=== PATIENT | female | born 1960 | race Caucasian/White ===

== ENCOUNTER 2016-08-12 13:17 | Emergency (ER) | payer BC, OTHER ==
[~2016-08-12] VITALS: Ht 160 cm; Wt 62.8 kg
[2016-08-12 13:38] VITALS: BP 125/87; PULSE 88; RESP 16; TEMP 98.1; O2SAT 97
[2016-08-12] MEDS ORDERED: CEPH-460 PO (14:17)
--- NOTE | 2016-08-12 14:17 | PD ---
HPI Chief Complaint: Facial Pain or Swelling Time Seen by Provider: 14:03 Travel History International Travel<30 days: No Contact w/Intl Traveler<30days: No Traveled to known affect area: No History of Present Illness HPI This 56-year-old female is complaining of swelling on the right side of her face. She was okay yesterday. This morning she noted that the right side of her face was swollen and seemed a little bit numb. She is not aware of fever or chills. She thinks that her teeth are okay. She is on no medications. [facility] Past Medical History Medical History: Denies Significant Hx Diminished Hearing: No Tetanus Vaccination: Unknown Influenza Vaccination: No Past Surgical History Surgical History: No Previous Surgery Section: Yes Social History Alcohol Use: Yes Tobacco Use: Yes (1ppd) Substance Use: No Allergies-Medications (Allergen,Severity, Reaction): Coded Allergies: No Known Allergies (Unverified , 08/12/16) Reported Meds & Prescriptions Reported Meds & Active Scripts Active No Active Prescriptions or Reported Medications Review of Systems General / Constitutional: No: Fever, Chills Eyes: No: Diploplia HENT: No: Sore Throat, Rhinitis, Ear Discharge Cardiovascular: No: Chest Pain or Discomfort, Palpitations Respiratory: No: Cough, Shortness of Breath Gastrointestinal: No: Vomiting, Diarrhea Genitourinary: No: Urgency, Frequency Musculoskeletal: No: Myalgias, Arthralgias Skin: No Rash Endocrine: No: Heat Intolerance Hematologic/Lymphatic: No: Easy Bruising Physical Exam Narrative GENERAL: Well-developed female SKIN: Focused skin assessment warm/dry. HEAD: Atraumatic. Normocephalic. EYES: Pupils equal and round. No scleral icterus. No injection or drainage. ENT: No nasal bleeding or discharge. Mucous membranes pink and moist. Teeth are intact and nontender. There is swelling over the right parotid gland. It is diffusely so tender I do not feel a discrete mass. NECK: Trachea midline. No JVD. CARDIOVASCULAR: Regular rate and rhythm. No murmur appreciated. RESPIRATORY: No accessory muscle use. Clear to auscultation. Breath sounds equal bilaterally. GASTROINTESTINAL: Abdomen soft, non-tender, nondistended. Hepatic and splenic margins not palpable. MUSCULOSKELETAL: No obvious deformities. No clubbing. No cyanosis. No edema. NEUROLOGICAL: Awake and alert. No obvious cranial nerve deficits. Motor grossly within normal limits. Normal speech. PSYCHIATRIC: Appropriate mood and affect; insight and judgment normal. Data Data Last Documented VS Vital Signs Date Time Temp Pulse Resp B/P Pulse Ox O2 Delivery O2 Flow Rate FiO2 08/12/16 13:56 80 16 08/12/16 13:38 98.1 125/87 97 MDM Medical Decision Making Medical Screen Exam Complete: Yes Emergency Medical Condition: Yes Medical Record Reviewed: Yes Differential Diagnosis Differential includes sialoadenitis, sialolithiasis, Narrative Course Patient will be started on Keflex with recommendations from lemon drops to stimulate salivary flow. The importance of follow-up was stressed to the patient to make sure this is tumor, though the acute nature is more consistent with infection Diagnosis Primary Impression: Parotitis, acute Referrals: Uriel Nicholson MD Scripts Cephalexin (Keflex)500 Mg Itd559 Mg PO Q6H #40 CAP Ref 0 Prov:Haroldo Andrews MD 08/12/16 Disposition: 01 DISCHARGE HOME Condition: Stable Haroldo Andrews MD Aug 12, 2016 14:17
== END 2016-08-12 14:59 | disposition home or self-care (01) ==
LOC: PHEFT 13:17
DX: K11.21 Acute sialoadenitis (principal); F17.210 Nicotine dependence, cigarettes, uncomplicated
CPT/HCPCS: 99283

== ENCOUNTER 2017-06-13 04:16 | Emergency (ER) | payer OTHER ==
[~2017-06-13] VITALS: Ht 157.5 cm; Wt 61.0 kg
[~2017-06-13 04:16] MED LIST: CEPH-460 PO
[2017-06-13 04:21] VITALS: BP 180/79; PULSE 86; RESP 20; TEMP 98; O2SAT 95
[2017-06-13] MEDS ORDERED: PRIL20TA2 (04:33)
--- NOTE | 2017-06-13 05:28 | PD ---
HPI Chief Complaint: Respiratory Symptoms Time Seen by Provider: 05:19 Travel History International Travel<30 days: No Contact w/Intl Traveler<30days: No Traveled to known affect area: No History of Present Illness HPI The patient is a 56-year-old female that started wheezing for the past week. She has been a heavy smoker for 40 years, one pack a day. She has cut back recently to one half pack a day. She denies any fever. She was given by [facility] personnel albuterol nebulizer treatments at home and then was cleared to drive from her home here to the emergency department. She did improve with the wheezing with those nebulizer treatments. She does not have a primary care physician. She can't remember ever having a chest x-ray. PFSH Past Medical History Diminished Hearing: No GERD: Yes Tetanus Vaccination: Unknown Influenza Vaccination: No ?: Not Menopausal: Yes Past Surgical History Section: Yes Social History Alcohol Use: Yes (6pk/day) Tobacco Use: Yes (1ppd) Substance Use: No Allergies-Medications (Allergen,Severity, Reaction): Coded Allergies: No Known Allergies (Unverified Adverse Reaction, Unknown, 06/13/17) Reported Meds & Prescriptions Reported Meds & Active Scripts Active Proair Hfa 8.5 GM Inh (Albuterol Sulfate) 90 Mcg/Act Aer 2 Puff INH Q4-6H PRN 108 mcg/actuation Prednisone 20 Mg Tab 20 Mg PO BID 5 Days Reported Prilosec (Omeprazole Magnesium) 20 Mg Tab Review of Systems Except as stated in HPI: all other systems reviewed are Neg Physical Exam Narrative GENERAL: The patient is alert, oriented 3 in no respiratory distress. Her vital signs show blood pressure 180/79 but are otherwise normal. SKIN: Focused skin assessment warm/dry. HEAD: Atraumatic. Normocephalic. EYES: Pupils equal and round. No scleral icterus. No injection or drainage. ENT: No nasal bleeding or discharge. Mucous membranes pink and moist. NECK: Trachea midline. No JVD. CARDIOVASCULAR: Regular rate and rhythm. No murmur appreciated. RESPIRATORY: No accessory muscle use. A few widely scattered wheezes are heard with deep expiration only. Breath sounds equal bilaterally. GASTROINTESTINAL: Abdomen soft, non-tender, nondistended. Hepatic and splenic margins not palpable. MUSCULOSKELETAL: No obvious deformities. No clubbing. No cyanosis. No edema. NEUROLOGICAL: Awake and alert. No obvious cranial nerve deficits. Motor grossly within normal limits. Normal speech. PSYCHIATRIC: Appropriate mood and affect; insight and judgment normal. Data Data Last Documented VS Vital Signs Date Time Temp Pulse Resp B/P (MAP) Pulse Ox O2 Delivery O2 Flow Rate FiO2 06/13/17 06:57 101 18 173/74 (107) 95 Room Air 06/13/17 04:21 98.0 Orders Orders Complete Blood Count With Diff (06/13/17 05:28) Basic Metabolic Panel (Bmp) (06/13/17 05:28) Influenzae A/B Antigen (06/13/17 05:28) Chest, Pa & Lat (06/13/17 05:28) Methylprednisolone So Succ Inj (Solumedr (06/13/17 05:30) Albuterol-Ipratropium Neb (Duoneb Neb) (06/13/17 05:30) Labs Laboratory Tests Test 06/13/17 05:35 White Blood Count 9.5 TH/MM3 Red Blood Count 5.00 MIL/MM3 Hemoglobin 16.1 GM/DL Hematocrit 47.8 % Mean Corpuscular Volume 95.7 FL Mean Corpuscular Hemoglobin 32.2 PG Mean Corpuscular Hemoglobin Concent 33.6 % Red Cell Distribution Width 13.0 % Platelet Count 316 TH/MM3 Mean Platelet Volume 8.1 FL Neutrophils (%) (Auto) 65.9 % Lymphocytes (%) (Auto) 22.5 % Monocytes (%) (Auto) 8.6 % Eosinophils (%) (Auto) 1.2 % Basophils (%) (Auto) 1.8 % Neutrophils # (Auto) 6.3 TH/MM3 Lymphocytes # (Auto) 2.1 TH/MM3 Monocytes # (Auto) 0.8 TH/MM3 Eosinophils # (Auto) 0.1 TH/MM3 Basophils # (Auto) 0.2 TH/MM3 CBC Comment DIFF FINAL Differential Comment Blood Urea Nitrogen 6 MG/DL Creatinine 0.49 MG/DL Random Glucose 100 MG/DL Calcium Level 8.5 MG/DL Sodium Level 137 MEQ/L Potassium Level 3.7 MEQ/L Chloride Level 104 MEQ/L Carbon Dioxide Level 24.2 MEQ/L Anion Gap 9 MEQ/L Estimat Glomerular Filtration Rate 130 ML/MIN MDM Medical Decision Making Medical Screen Exam Complete: Yes Emergency Medical Condition: Yes Medical Record Reviewed: Yes Interpretation(s) The influenza A/B antigen is negative for flu a and flu B antigen. The CBC is normal except for slight elevation of the abdomen and hematocrit at 16.1 and 47.8. The basic metabolic profile is unremarkable. The chest x-ray shows a right lower lobe infiltrate and small right effusion consistent with pneumonia. Differential Diagnosis Pneumonia, bronchitis with bronchospasm, lung tumor, Narrative Course The patient is alert, active and in no respiratory distress. She does not want to be admitted to the hospital for this and wants to try treatment as an outpatient. It was stressed that she needs to follow-up with this to make sure this pneumonia resolves. It is possible that a tumor could be hidden in what looks like a pneumonia and this was explained to the patient. She needs to quit smoking completely. She is given Zithromax 500 mg daily for 5 days and Ceftin 500 mg twice a day for 10 days. If worse, she should return to emergency department. Diagnosis Primary Impression: Right lower lobe pneumonia Additional Instructions: As we discussed, you need to quit smoking. You did promise me that you would quit smoking at least for the time of the pneumonia. The Ceftin's twice daily for 10 days and the Zithromax is one tablet daily for 5 days. Med/Other Pt SpecificInfo: Prescription(s) given Scripts Azithromycin (Zithromax) 500 Mg Tab 500 MG PO DAILY for Infection for 5 Days, #5 TAB 0 Refills Prov: Zac Simental MD 06/13/17 Cefuroxime (Ceftin) 250 Mg Tab 500 MG PO BID for 10 Days, #40 TAB Prov: Zac Simental MD 06/13/17 Albuterol 8.5 GM Inh (Proair Hfa 8.5 GM Inh) 90 Mcg/Act Aer 2 PUFF INH Q4-6H Y for SHORTNESS OF BREATH, #1 INHALER 0 Refills 108 mcg/actuation Prov: Zac Simental MD 06/13/17 Prednisone (Prednisone) 20 Mg Tab 20 MG PO BID for 5 Days, #10 TAB 0 Refills Prov: Zac Simental MD 06/13/17 Disposition: 01 DISCHARGE HOME Condition: Stable Zac Simental MD Jun 13, 2017 05:28
[2017-06-13] MEDS ORDERED: methylPREDNISolone SOD SUCC 125 MG/2 ML VIAL IV PUSH ONE (05:30)
[2017-06-13] MEDS: RESP: ALBUTEROL 2.5 MG/IPRATROPIUM 0.5 MG NEB (SCH) INH (05:40)
[2017-06-13 05:50] LABS: AUTOMATED NEUTROPHIL # 6.3 TH/MM3 (1.8-7.7); BASOPHIL # 0.2 TH/MM3 (0-0.2); BASOPHIL % 1.8 % (0.0-2.0); EOSINOPHIL # 0.1 TH/MM3 (0-0.4); EOSINOPHIL % 1.2 % (0.0-4.0); HEMATOCRIT 47.8 % (35.0-46.0); HEMOGLOBIN 16.1 GM/DL (11.6-15.3); LYMPH % 22.5 % (9.0-44.0); LYMPHOCYTE # 2.1 TH/MM3 (1.0-4.8); MEAN CELL VOLUME 95.7 FL (80.0-100.0); MEAN CORPUSCULAR HEMOGLOBIN 32.2 PG (27.0-34.0); MEAN CORPUSCULAR HGB CONC 33.6 % (32.0-36.0); MEAN PLATELET VOLUME 8.1 FL (7.0-11.0); MONO % 8.6 % (0.0-8.0); MONOCYTE # 0.8 TH/MM3 (0-0.9); NEUT % 65.9 % (16.0-70.0); PLATELET COUNT 316 TH/MM3 (150-450); WHITE BLOOD COUNT 9.5 TH/MM3 (4.0-11.0)
[2017-06-13 05:52] VITALS: BP 146/71; PULSE 80; RESP 18; O2SAT 100
[2017-06-13 06:02] LABS: BICARBONATE 24.2 MEQ/L (21.0-32.0); CALCIUM 8.5 MG/DL (8.5-10.1)
[2017-06-13 06:06] LABS: CREATININE 0.49 MG/DL (0.50-1.00)
[2017-06-13] MEDS ORDERED: PRED20 PO (06:10)
[2017-06-13] MEDS ORDERED: ALBUAER3 INH (06:10)
--- NOTE | 2017-06-13 06:34 | RADRPT ---
EXAM DATE/TIME: 06/13/2017 05:44 [facility] COMPARISON: No previous studies available for comparison. INDICATIONS : Cough. Congestion. MEDICAL HISTORY : None. SURGICAL HISTORY : None. ENCOUNTER: Initial ACUITY: 4 - 6 days PAIN SCORE: 6/10 LOCATION: Bilateral chest FINDINGS: PA and lateral views of the chest were obtained and demonstrate patchy infiltrate in the right lower lobe with small right pleural effusion. The left lung is clear. The heart size is within normal limit s. The bony thorax is intact. Patient is status post right mastectomy. CONCLUSION: 1. Right lower lobe infiltrate and small right effusion of concern for pneumonia. 2. Status post right mastectomy. Royce Damian MD on June 13, 2017 at 6:32 Board Certified Radiologist. This report was verified electronically.
[2017-06-13 06:57] VITALS: BP 173/74; PULSE 101; RESP 18; O2SAT 95
[2017-06-13] MEDS ORDERED: ZITH500T PO (07:08)
[2017-06-13] MEDS ORDERED: CEFU1TAB18 PO (07:08)
[2017-06-13] MEDS ORDERED: AZITHROMYCIN 250 MG TAB PO ONE (07:15)
[2017-06-13] MEDS ORDERED: cefTRIAXone INJ 1,000 MG in SODIUM CHLORIDE 0.9% INJ 100 ML IV ONE (07:15)
[2017-06-13 08:30] VITALS: BP 134/80
== END 2017-06-13 08:31 | disposition home or self-care (01) ==
LOC: PHED 04:16
DX: K21.9 Gastro-esophageal reflux disease without esophagitis (principal); F17.200 Nicotine dependence, unspecified, uncomplicated; J18.9 Pneumonia, unspecified organism
CPT/HCPCS: 71046; 80048; 85025; 87804; 94640; 94664; 96365; 96375; 99284; J0696; J2930

== ENCOUNTER 2017-07-01 13:02 | Inpatient (IN) | payer OTHER ==
[~2017-07-01] VITALS: Ht 165.1 cm; Wt 60.9 kg
[~2017-07-01 13:02] MED LIST changes: +ALBUAER3 INH; +CEFU1TAB18 PO; -CEPH-460 PO; +PRED20 PO; +PRIL20TA2; +ZITH500T PO
[2017-07-01 13:07] VITALS: BP 179/84; PULSE 102; RESP 18; TEMP 97.7; O2SAT 95
--- NOTE | 2017-07-01 13:22 | PD ---
HPI Chief Complaint: Respiratory Symptoms Time Seen by Provider: 13:12 Travel History International Travel<30 days: No Contact w/Intl Traveler<30days: No Traveled to known affect area: No History of Present Illness HPI 56yo F with no significant PMH presents to the ED with c/o sob for 4 days. Pt is a heavy cig smoker but said she was never diagnosed with COPD. Denies any fever, chest pain, cough, n/v, abdominal pain, focal weakness or numbness. Pt used her albuterol pump and it did help but sob comes back. Pt was seen at [place] on 06/13/17 and diagnosed with right lower lobe pneumonia and discharge with ceftin, azithromycin, prednisone and ventolin. Said her symptoms improved and she was feeling good until 4 days ago. PFSH Past Medical History Diminished Hearing: No GERD: Yes ?: Not Menopausal: Yes Past Surgical History Section: Yes Social History Alcohol Use: Yes (6pk/day) Tobacco Use: Yes (1ppd) Substance Use: No Allergies-Medications (Allergen,Severity, Reaction): Coded Allergies: No Known Allergies (Unverified Adverse Reaction, Unknown, 07/01/17) Reported Meds & Prescriptions Reported Meds & Active Scripts Active Proair Hfa 8.5 GM Inh (Albuterol Sulfate) 90 Mcg/Act Aer 2 Puff INH Q4-6H PRN 108 mcg/actuation Reported Prilosec (Omeprazole Magnesium) 20 Mg Tab Review of Systems Except as stated in HPI: all other systems reviewed are Neg Physical Exam Narrative GENERAL: 56yo F in mild distress. SKIN: Focused skin assessment warm/dry. HEAD: Atraumatic. Normocephalic. EYES: Pupils equal and round. No scleral icterus. No injection or drainage. ENT: No nasal bleeding or discharge. Mucous membranes pink and moist. NECK: Trachea midline. No JVD. CARDIOVASCULAR: Regular rate and rhythm. No murmur appreciated. RESPIRATORY: Expiratory wheezing bilaterally. Decreased breath sounds right lower lobe. GASTROINTESTINAL: Abdomen soft, non-tender, nondistended. MUSCULOSKELETAL: No obvious deformities. No clubbing. No cyanosis. No edema. No calf tenderness. NEUROLOGICAL: Awake and alert. No obvious cranial nerve deficits. Motor grossly within normal limits. Normal speech. PSYCHIATRIC: Appropriate mood and affect; insight and judgment normal. Data Data Last Documented VS Vital Signs Date Time Temp Pulse Resp B/P (MAP) Pulse Ox O2 Delivery O2 Flow Rate FiO2 07/01/17 14:04 95 Room Air 07/01/17 13:07 97.7 102 18 179/84 (115) Orders Orders Complete Blood Count With Diff (07/01/17 13:17) Basic Metabolic Panel (Bmp) (07/01/17 13:17) Magnesium (Mg) (07/01/17 13:17) Troponin I (07/01/17 13:17) Influenzae A/B Antigen (07/01/17 13:17) Electrocardiogram (07/01/17 13:17) Chest, Single Ap (07/01/17 13:17) Methylprednisolone So Succ Inj (Solumedr (07/01/17 13:30) Albuterol-Ipratropium Neb (Duoneb Neb) (07/01/17 13:30) Prothrombin Time / Inr (Pt) (07/01/17 14:12) Act Partial Throm Time (Ptt) (07/01/17 14:12) Type And Screen (07/01/17 14:12) Blood Culture (07/01/17 14:18) Lactic Acid Sepsis Protocol (07/01/17 14:18) Ceftriaxone Inj (Rocephin Inj) (07/01/17 14:30) Azithromycin Inj (Zithromax Inj) (07/01/17 14:30) Admit Order (Ed Use Only) (07/01/17 15:10) Labs Laboratory Tests Test 07/01/17 13:30 07/01/17 14:20 07/01/17 14:25 White Blood Count 9.7 TH/MM3 Red Blood Count 4.65 MIL/MM3 Hemoglobin 15.1 GM/DL Hematocrit 44.2 % Mean Corpuscular Volume 95.1 FL Mean Corpuscular Hemoglobin 32.5 PG Mean Corpuscular Hemoglobin Concent 34.1 % Red Cell Distribution Width 13.1 % Platelet Count 309 TH/MM3 Mean Platelet Volume 7.9 FL Neutrophils (%) (Auto) 60.6 % Lymphocytes (%) (Auto) 22.8 % Monocytes (%) (Auto) 11.3 % Eosinophils (%) (Auto) 1.2 % Basophils (%) (Auto) 4.1 % Neutrophils # (Auto) 5.9 TH/MM3 Lymphocytes # (Auto) 2.2 TH/MM3 Monocytes # (Auto) 1.1 TH/MM3 Eosinophils # (Auto) 0.1 TH/MM3 Basophils # (Auto) 0.4 TH/MM3 CBC Comment DIFF FINAL Differential Comment Blood Urea Nitrogen 9 MG/DL Creatinine 0.53 MG/DL Random Glucose 156 MG/DL Calcium Level 8.6 MG/DL Magnesium Level 1.7 MG/DL Sodium Level 136 MEQ/L Potassium Level 3.8 MEQ/L Chloride Level 104 MEQ/L Carbon Dioxide Level 23.8 MEQ/L Anion Gap 8 MEQ/L Estimat Glomerular Filtration Rate 119 ML/MIN Troponin I LESS THAN 0.02 NG/ML Prothrombin Time 9.9 SEC Prothromb Time International Ratio 1.0 RATIO Activated Partial Thromboplast Time 23.3 SEC Lactic Acid Level 1.2 mmol/L [facility] Medical Decision Making Medical Screen Exam Complete: Yes Emergency Medical Condition: Yes Interpretation(s) EKG: NSR 91bpm. Normal axis. No ST segment elevation or depression. Differential Diagnosis COPD exacerbation vs. URI vs. bronchitis vs. pneumonia Narrative Course 56yo F who is a heavy cig smoker here with sob for 4 days. Pt is wheezing on exam but speaking in complete sentences. Will give duonebs, methylprednisolone , and obtain EKG, CXR and labs. Labs reviewed, no leukocytosis. H/H normal. Troponin negative. CXR showed consolidative changes right lower lobe with moderate pleural effusion. CXR looks worst than prior CXR. Pt reevaluated at bedside and feels better than when she came in but still not at baseline. Will add blood cultures, lactic acid and empirically cover with ceftriaxone and azithromycin. Will need to admit pt for thoracentesis and work up of etiology of pleural effusion. Feel that pt is sob because of the pleural effusion and COPD. Discussed with Dr. Plasencia and accepted to his service. Diagnosis Primary Impression: Pleural effusion on right Admitting Information Admitting Physician Requests: Admit Ryanne Chavira Jul 01, 2017 13:22
[2017-07-01] MEDS ORDERED: methylPREDNISolone SOD SUCC 125 MG/2 ML VIAL IV PUSH ONE (13:30)
[2017-07-01 13:45] LABS: AUTOMATED NEUTROPHIL # 5.9 TH/MM3 (1.8-7.7); BASOPHIL # 0.4 TH/MM3 (0-0.2); BASOPHIL % 4.1 % (0.0-2.0); EOSINOPHIL # 0.1 TH/MM3 (0-0.4); EOSINOPHIL % 1.2 % (0.0-4.0); HEMATOCRIT 44.2 % (35.0-46.0); HEMOGLOBIN 15.1 GM/DL (11.6-15.3); LYMPH % 22.8 % (9.0-44.0); LYMPHOCYTE # 2.2 TH/MM3 (1.0-4.8); MEAN CELL VOLUME 95.1 FL (80.0-100.0); MEAN CORPUSCULAR HEMOGLOBIN 32.5 PG (27.0-34.0); MEAN CORPUSCULAR HGB CONC 34.1 % (32.0-36.0); MEAN PLATELET VOLUME 7.9 FL (7.0-11.0); MONO % 11.3 % (0.0-8.0); MONOCYTE # 1.1 TH/MM3 (0-0.9); NEUT % 60.6 % (16.0-70.0); PLATELET COUNT 309 TH/MM3 (150-450); RED BLOOD COUNT 4.65 MIL/MM3 (4.00-5.30); RED CELL DISTRIBUTION WIDTH 13.1 % (11.6-17.2); WHITE BLOOD COUNT 9.7 TH/MM3 (4.0-11.0)
[2017-07-01] MEDS: RESP: ALBUTEROL 2.5 MG/IPRATROPIUM 0.5 MG NEB (SCH) INH (13:49)
[2017-07-01 13:52] LABS: CHLORIDE 104 MEQ/L (98-107); SODIUM (NA) 136 MEQ/L (136-145)
[2017-07-01 13:54] LABS: CALCIUM 8.6 MG/DL (8.5-10.1)
--- NOTE | 2017-07-01 13:54 | RADRPT ---
EXAM DATE/TIME: 07/01/2017 13:38 [facility] COMPARISON: No previous studies available for comparison. INDICATIONS : Short of breath MEDICAL HISTORY : Smoker SURGICAL HISTORY : section. ENCOUNTER: Initial ACUITY: 4 - 6 days PAIN SCORE: 0/10 LOCATION: chest FINDINGS: Consolidative changes and moderate right pleural effusion. Left lung is clear. The heart and pulmona ry vascularity are normal. The portion of the bony skeleton visualized is unremarkable. CONCLUSION: Consolidative changes right lower lobe with moderate right pleural effusion.. Jamaal Enrique MD FACR on July 01, 2017 at 13:51 Board Certified Radiologist. This report was verified electronically.
[2017-07-01 13:55] LABS: BICARBONATE 23.8 MEQ/L (21.0-32.0); BLOOD UREA NITROGEN 9 MG/DL (7-18); GLUCOSE,RANDOM 156 MG/DL (74-106); MAGNESIUM 1.7 MG/DL (1.5-2.5)
[2017-07-01 13:58] LABS: CREATININE 0.53 MG/DL (0.50-1.00); GLOMERULAR FILTRATION RATE 119 ML/MIN (>89)
[2017-07-01 14:03] LABS: TROPONIN I LESS THAN 0.02 NG/ML (0.02-0.05)
[2017-07-01] MEDS ORDERED: cefTRIAXone INJ 1,000 MG in SODIUM CHLORIDE 0.9% INJ 100 ML IV ONE (14:30)
[2017-07-01] MEDS ORDERED: AZITHROMYCIN INJ 500 MG in SODIUM CHLOR 0.9% 250 ML INJ 250 ML IV ONE (14:30)
[2017-07-01 14:59] LABS: PROTHROMBIN TIME - PATIENT 9.9 SEC (9.8-11.6)
[2017-07-01] MEDS ORDERED: ONDANSETRON HCL 4 MG/2 ML VIAL IVP PRN (15:15)
[2017-07-01] MEDS ORDERED: NALOXONE HCL 0.4 MG/ML AMP IV PUSH PRN (15:15)
[2017-07-01] MEDS ORDERED: MAGNESIUM HYDROXIDE SUSP 30 ML CUP PO PRN (15:15)
[2017-07-01] MEDS ORDERED: SODIUM CHLORIDE 0.9% FLUSH 10 ML FLUSH IV FLUSH PRN (15:15)
[2017-07-01] MEDS ORDERED: ACETAMINOPHEN/HYDROcodone 325 MG/5 MG TAB PO PRN (15:15)
[2017-07-01] MEDS ORDERED: ACETAMINOPHEN/HYDROcodone 325 MG/10 MG TAB PO PRN (15:15)
[2017-07-01 15:51] VITALS: BP 153/65
--- NOTE | 2017-07-01 16:35 | HHI.HP ---
HPI Service [facility] Hospitalists Primary Care Physician No Primary Care Physician Admission Diagnosis Right pleural effusion Diagnoses: (1) Pleural effusion on right Chief Complaint: Shortness of breath Travel History International Travel<30 Days: No Contact w/Intl Traveler <30 Da: No Traveled to Known Affected Are: No History of Present Illness This is a 56-year-old female patient with no significant medical history who presented to the ED with complaints of shortness of breath for 4 days. Patient states that she presented to [facility] on June 13 with complaint of shortness of breath and diagnosed with right lower lobe pneumonia patient was discharged with Ceftin, azithromycin and prednisone. Patient states that her symptoms did improve but she still started to feel symptoms return roughly 4 days ago. Patient denies any recent fever, chills, headache, abdominal pain, nausea, vomiting or diarrhea. She does admit to a nonproductive cough, has been using her Ventolin inhaler intermittently. Patient does not see a PCP. Patient is a smoker, smokes 1 pack per day cigarettes. Denies any history of pulmonary disease. Review of Systems Constitutional: DENIES: Fever, Chills Eyes: DENIES: Blurred vision, Diplopia Respiratory: COMPLAINS OF: Cough, Shortness of breath, DENIES: Sputum production Cardiovascular: DENIES: Chest pain, Palpitations Gastrointestinal: DENIES: Abdominal pain, Black stools, Bloody stools, Constipation, Diarrhea, Nausea, Vomiting Neurologic: DENIES: Abnormal gait Psychiatric: DENIES: Anxiety Except as stated in HPI: all other systems reviewed are Neg Past Family Social History Past Medical History GERD Tobacco abuse Past Surgical History Reported Medications Active Proair Hfa 8.5 GM Inh (Albuterol Sulfate) 90 Mcg/Act Aer 2 Puff INH Q4-6H PRN 108 mcg/actuation Reported Prilosec (Omeprazole Magnesium) 20 Mg Tab Allergies: Coded Allergies: No Known Allergies (Unverified Adverse Reaction, Unknown, 07/01/17) Active Ordered Medications Current Medications Medications (Trade) Dose Ordered Sig/Sin Route Start Time Stop Time Status Last Admin (NS Flush) 2 ml UNSCH PRN IV FLUSH 07/01/17 15:15 (NS Flush) 2 ml BID IV FLUSH 07/01/17 21:00 (Zofran Inj) 4 mg Q6H PRN IVP 07/01/17 15:15 ([place] 5-325 Mg) 1 tab Q4H PRN PO 07/01/17 15:15 ([place] 10-325 Mg) 1 tab Q4H PRN PO 07/01/17 15:15 (Narcan Inj) 0.4 mg UNSCH PRN IV PUSH 07/01/17 15:15 (Milk Of Sangita Liq) 30 ml Q12H PRN PO 07/01/17 15:15 Family History Paternal medical history significant for cardiovascular disease. Mother had unspecified cancer. Social History Does admit to smoking 1 pack per day. Does drink 2-3 beers per day. Denies any illicit drug use. Physical Exam Vital Signs Vital Signs Date Time Temp Pulse Resp B/P (MAP) Pulse Ox O2 Delivery O2 Flow Rate FiO2 07/01/17 15:51 108 18 153/65 (94) 93 07/01/17 14:04 95 Room Air 07/01/17 13:07 97.7 102 18 179/84 (115) 95 Physical Exam GENERAL: Well-developed, well-nourished patient in NAD. SKIN: Warm and dry. No rash. HEAD: Normocephalic. Atraumatic. EYES: Pupils equal and round. No scleral icterus. No injection or drainage. ENT: No nasal bleeding or discharge. Mucous membranes pink and moist. NECK: Supple. Trachea midline. CARDIOVASCULAR: Regular rate and rhythm. S1, S2 noted. No murmur appreciated. RESPIRATORY: No accessory muscle use. Clear to auscultation. Breath sounds equal bilaterally. GASTROINTESTINAL: Abdomen soft, non-tender, nondistended. Normoactive bowel sounds x4. MUSCULOSKELETAL: No obvious deformities. Extremities without clubbing, cyanosis , or edema. NEUROLOGICAL: Awake and alert. No obvious cranial nerve deficits. Motor grossly within normal limits. 5/5 muscle strength in bilateral upper and lower extremities. Normal speech. PSYCHIATRIC: Appropriate mood and affect; insight and judgment normal. Laboratory Laboratory Tests Test 07/01/17 13:30 07/01/17 14:20 07/01/17 14:25 White Blood Count 9.7 Red Blood Count 4.65 Hemoglobin 15.1 Hematocrit 44.2 Mean Corpuscular Volume 95.1 Mean Corpuscular Hemoglobin 32.5 Mean Corpuscular Hemoglobin Concent 34.1 Red Cell Distribution Width 13.1 Platelet Count 309 Mean Platelet Volume 7.9 Neutrophils (%) (Auto) 60.6 Lymphocytes (%) (Auto) 22.8 Monocytes (%) (Auto) 11.3 Eosinophils (%) (Auto) 1.2 Basophils (%) (Auto) 4.1 Neutrophils # (Auto) 5.9 Lymphocytes # (Auto) 2.2 Monocytes # (Auto) 1.1 Eosinophils # (Auto) 0.1 Basophils # (Auto) 0.4 CBC Comment DIFF FINAL Differential Comment Blood Urea Nitrogen 9 Creatinine 0.53 Random Glucose 156 Calcium Level 8.6 Magnesium Level 1.7 Sodium Level 136 Potassium Level 3.8 Chloride Level 104 Carbon Dioxide Level 23.8 Anion Gap 8 Estimat Glomerular Filtration Rate 119 Troponin I LESS THAN 0.02 Prothrombin Time 9.9 Prothromb Time International Ratio 1.0 Activated Partial Thromboplast Time 23.3 Lactic Acid Level 1.2 Date/Time Source Procedure Growth Status 07/01/17 14:28 Blood Peripheral Aerobic Blood Culture Pending Received 07/01/17 14:28 Blood Peripheral Anaerobic Blood Culture Pending Received 07/01/17 13:28 Nasal Aspirate Influenza Types A,B Antigen (RADHA) - Final NEGATIVE FOR FLU A AND B ANTIGEN.... Complete Result Diagram: 07/01/17 1330 07/01/17 1330 Imaging Last Impressions Chest X-Ray 07/01/17 1317 Signed Impressions: Service Date/Time: Saturday, July 01, 2017 13:38 - CONCLUSION: Consolidative changes right lower lobe with moderate right pleural effusion.. Jamaal Enrique MD FACR Septic Shock Reassessment Septic shock perfusion: reassessment completed Caprini VTE Risk Assessment Caprini VTE Risk Assessment: No/Low Risk (score <= 1) Caprini Risk Assessment Model Point Value = 1 Point Value = 2 Point Value = 3 Point Value = 5 Age 41-60 Minor surgery BMI > 25 kg/m2 Swollen legs Varicose veins or History of unexplained or recurrent spontaneous Oral contraceptives or hormone replacement Sepsis (< 1 month) Serious lung disease, including pneumonia (< 1 month) Abnormal pulmonary function Acute myocardial infarction Congestive heart failure (< 1 month) History of inflammatory bowel disease Medical patient at bed rest Age 61-74 Arthroscopic surgery Major open surgery (> 45 min) Laparoscopic surgery (> 45 min) Malignancy Confined to bed (> 72 hours) Immobilizing plaster cast Central venous access Age >= 75 History of VTE Family history of VTE Factor V Leiden Prothrombin [id number] Lupus anticoagulant Anticardiolipin antibodies Elevated serum homocysteine Heparin-induced thrombocytopenia Other congenital or acquired thrombophilia Stroke (< 1 month) Elective arthroplasty Hip, pelvis, or leg fracture Acute spinal cord injury (< 1 month) Prophylaxis Regimen Total Risk Factor Score Risk Level Prophylaxis Regimen 0-1 Low Early ambulation 2 Moderate Order ONE of the following: *Sequential Compression Device (SCD) *Heparin 5000 units SQ BID 3-4 Higher Order ONE of the following medications: *Heparin 5000 units SQ TID *Enoxaparin/Lovenox 40 mg SQ daily (WT < 150 kg, CrCl > 30 mL/min) *Enoxaparin/Lovenox 30 mg SQ daily (WT < 150 kg, CrCl > 10-29 mL/min) *Enoxaparin/Lovenox 30 mg SQ BID (WT < 150 kg, CrCl > 30 mL/min) AND/OR *Sequential Compression Device (SCD) 5 or more Highest Order ONE of the following medications: *Heparin 5000 units SQ TID (Preferred with Epidurals) *Enoxaparin/Lovenox 40 mg SQ daily (WT < 150 kg, CrCl > 30 mL/min) *Enoxaparin/Lovenox 30 mg SQ daily (WT < 150 kg, CrCl > 10-29 mL/min) *Enoxaparin/Lovenox 30 mg SQ BID (WT < 150 kg, CrCl > 30 mL/min) AND *Sequential Compression Device (SCD) Assessment and Plan Assessment and Plan This is a 56-year-old female patient with no significant medical history who presented to the ED with complaints of shortness of breath for 4 days. Right lower lobe pneumonia failed outpatient antibiotic therapy Moderate right pleural effusion Patient had presented to the ED on June 13 and was given Ceftin, azithromycin and prednisone. Patient's symptoms have not improved. Chest x-ray reviewed showing consolidative changes right lower lobe with moderate right pleural effusion. Patient is afebrile. Blood cultures are pending. Influenza negative. No leukocytosis. Follow CBC. Lactic acid 1.2. Ultrasound-guided thoracentesis ordered. Performed and tolerated well, 1200 ml obtained. Follow cultures. Received azithromycin and ceftriaxone in ED. Continue. We will also continue IV steroids. Duo nebs scheduled and as needed. Supplemental O2 as needed. Control pain, [place] available as needed for pain scale. Supportive care. DVT prophylaxis: SCDs. Physician Certification 2 Midnight Certification Type: Admission for Inpatient Services Order for Inpatient Services The services are ordered in accordance with Medicare regulations or non- Medicare payer requirements, as applicable. In the case of services not specified as inpatient-only, they are appropriately provided as inpatient services in accordance with the 2-midnight benchmark. Estimated LOS (days): 3 3 days is the estimated time the patient will need to remain in the hospital, assuming treatment plan goals are met and no additional complications. Post-Hospital Plan: Not yet determined Rosalba Minor Jul 01, 2017 16:35
[2017-07-01] MEDS ORDERED: ALBUTEROL SULFATE 90 MCG/ACT HFA 8 GM INHALER INH PRN (16:45)
--- NOTE | 2017-07-01 17:29 | RADRPT ---
EXAM DATE/TIME: 07/01/2017 17:12 [facility] COMPARISON: CHEST PA & LAT, June 13, 2017, 5:44. CHEST SINGLE AP, July 01, 2017, 13:38. INDICATIONS : Post right thoracentesis. MEDICAL HISTORY : Smoker SURGICAL HISTORY : section. ENCOUNTER: Subsequent ACUITY: 4 - 6 days PAIN SCORE: 0/10 LOCATION: Right chest FINDINGS: A single portable frontal view the chest shows significant reduction in the right pleural effusion. A tiny amount of fluid remains in the lateral costophrenic sulcus. Right basilar atelectasis. There is a nodular density seen projecting over the midlung laterally on the right. This measures 1.4 x 0.9 c m. This was not evident on the prior study as this area was obscured by atelectasis. Left lung is vira ar without effusion. Heart is normal in size. CONCLUSION: 1. No pneumothorax following thoracentesis. 2. 14 mm nodule within the right lower lobe previously obscured. Consider CT of the thorax to further characterize. Alexis Macias Jr., MD on July 01, 2017 at 17:25 Board Certified Radiologist. This report was verified electronically.
--- NOTE | 2017-07-01 17:29 | RADRPT ---
EXAM DATE/TIME: 07/01/2017 16:19 [facility] COMPARISON: No previous studies available for comparison. INDICATIONS : Right pleural effusion. Vancomycin within 2 hrs of procedure, Ancef (or alternative) within 1 hr of procedure start. MEDICAL HISTORY : Gastroesophageal reflux disease. Pneumonia. Alcohol use. Tobacco use. SURGICAL HISTORY : section. ENCOUNTER: Initial ACUITY: 1 month PAIN SCORE: 2/10 LOCATION: Right chest FLUID: Total volume of 1300 cc of clear, yellow fluid was removed. Fluid was sent to lab for ordered studies. TECHNIQUE: 1. Ultrasound guidance for thoracentesis. 2. Thoracentesis. The risks, benefits, and alternatives to ultrasound guided thoracentesis were explained to the patien t in lay simple terms, including the risk of bleeding and infection. Written and verbal informed con sent was obtained. Appropriate area for thoracentesis was marked under ultrasound guidance with the patient in the uprig ht position. Overlying skin was prepped and draped in the usual sterile fashion and with local anest hetic, a dermatotomy was made with an 11 blade scalpel. A 6 Chinese thoracentesis catheter was placed in the pleural space and fluid was removed. Catheter was then removed and a sterile dressing applie d. There were no immediate complications. The patient tolerated the procedure well and the left the ultrasound suite in stable condition. Chest radiograph is to be obtained. CONCLUSION: Uncomplicated ultrasound guided right thoracentesis. The fluid was sent to the laboratory. Alexis Macias Jr., MD on July 01, 2017 at 17:27 Board Certified Radiologist. This report was verified electronically.
[2017-07-01 17:30] VITALS: BP 139/87; PULSE 112; RESP 14; TEMP 96.4; O2SAT 95
[2017-07-01] MEDS ORDERED: RESP: ALBUTEROL 2.5 MG/IPRATROPIUM 0.5 MG NEB (PRN) NEB (17:45)
[2017-07-01] MEDS: methylPREDNISolone SOD SUCC 40 MG/1 ML VIAL IV PUSH SCH (18:14)
[2017-07-01 19:02] LABS: PLEURAL FLUID BASO 1 %; PLEURAL FLUID EOS 1 %; PLEURAL FLUID HISTIOCYTES 6 %; PLEURAL FLUID LYMPHS 69 %; PLEURAL FLUID MESOTHELIAL 2 %; PLEURAL FLUID MONOS 19 %; PLEURAL FLUID POLYS (SEGS) 2 %
[2017-07-01 19:38] LABS: PLEURAL FLUID RBC 656 /MM3 (0-0); PLEURAL FLUID WBC 433 /MM3 (0-10)
[2017-07-01 20:00] VITALS: BP 143/67; PULSE 106; RESP 20; TEMP 97.8; O2SAT 94
[2017-07-01] MEDS: RESP: ALBUTEROL 2.5 MG/IPRATROPIUM 0.5 MG NEB (SCH) NEB (20:49)
[2017-07-01] MEDS: SODIUM CHLORIDE 0.9% FLUSH 10 ML FLUSH IV FLUSH SCH (21:53)
[2017-07-02] VITALS (10 sets, daily range): BP systolic 126–155; BP diastolic 71–96; PULSE 82–114; RESP 18–20; TEMP 97.5–98.2; O2SAT 93–97
[2017-07-02] MEDS: methylPREDNISolone SOD SUCC 40 MG/1 ML VIAL IV PUSH SCH ×4 (00:49→16:45)
[2017-07-02] MEDS: RESP: ALBUTEROL 2.5 MG/IPRATROPIUM 0.5 MG NEB (SCH) NEB ×3 (08:14→20:16)
[2017-07-02] MEDS: SODIUM CHLORIDE 0.9% FLUSH 10 ML FLUSH IV FLUSH SCH ×2 (08:31→21:00)
[2017-07-02 09:41] LABS: AUTOMATED NEUTROPHIL # 15.5 TH/MM3 (1.8-7.7); BASOPHIL # 0.2 TH/MM3 (0-0.2); BASOPHIL % 1.4 % (0.0-2.0); HEMOGLOBIN 15.2 GM/DL (11.6-15.3); LYMPH % 5.6 % (9.0-44.0); MEAN CELL VOLUME 96.6 FL (80.0-100.0); MEAN CORPUSCULAR HEMOGLOBIN 31.9 PG (27.0-34.0); MEAN PLATELET VOLUME 8.7 FL (7.0-11.0); MONO % 2.1 % (0.0-8.0); MONOCYTE # 0.4 TH/MM3 (0-0.9); NEUT % 90.9 % (16.0-70.0); PLATELET COUNT 301 TH/MM3 (150-450); RED BLOOD COUNT 4.76 MIL/MM3 (4.00-5.30); RED CELL DISTRIBUTION WIDTH 12.5 % (11.6-17.2); WHITE BLOOD COUNT 17.1 TH/MM3 (4.0-11.0)
[2017-07-02 10:00] LABS: CHLORIDE 103 MEQ/L (98-107); SODIUM (NA) 140 MEQ/L (136-145)
[2017-07-02 10:23] LABS: ALBUMIN 3.5 GM/DL (3.4-5.0); ALKALINE PHOSPHATASE 75 U/L (45-117); ALT (GPT) 19 U/L (10-53); AST (GOT) 22 U/L (15-37); BICARBONATE 27.9 MEQ/L (21.0-32.0); BLOOD UREA NITROGEN 5 MG/DL (7-18); CALCIUM 9.5 MG/DL (8.5-10.1); CREATININE 0.54 MG/DL (0.50-1.00); GLOMERULAR FILTRATION RATE 116 ML/MIN (>89); GLUCOSE,RANDOM 192 MG/DL (74-106); TOTAL BILIRUBIN ADULT 0.6 MG/DL (0.2-1.0); TOTAL PROTEIN 7.8 GM/DL (6.4-8.2)
--- NOTE | 2017-07-02 10:42 | HHI.PR ---
Subjective Remarks Follow-up pneumonia. Patient seen and examined, lying in bed comfortably. No acute events overnight. Awaiting CT scan. Updated patient about finding on chest x-ray, inflammatory versus infection versus rule out cancer. All questions answered. Vital signs stable. Objective Vitals Vital Signs Date Time Temp Pulse Resp B/P (MAP) Pulse Ox O2 Delivery O2 Flow Rate FiO2 07/02/17 08:15 94 07/02/17 08:00 97.5 82 18 144/85 (104) 95 07/02/17 04:00 98.2 91 20 134/96 (109) 93 07/02/17 00:00 98.1 101 20 142/72 (95) 93 07/01/17 20:00 97.8 106 20 143/67 (92) 94 07/01/17 17:30 96.4 112 14 139/87 (104) 95 07/01/17 15:51 108 18 153/65 (94) 93 07/01/17 14:04 95 Room Air 07/01/17 13:07 97.7 102 18 179/84 (115) 95 I/O 07/01/17 07/01/17 07/01/17 07/02/17 07/02/17 07/02/17 07:00 15:00 23:00 07:00 15:00 23:00 Intake Total 350 ml 420 ml Balance 350 ml 420 ml Intake Oral 420 ml IV Total 350 ml # Voids 1 2 # Bowel Movements 0 Result Diagram: 07/02/17 0853 07/02/17 0853 Imaging Last Impressions Chest X-Ray 07/01/17 1317 Signed Impressions: Service Date/Time: Saturday, July 01, 2017 13:38 - CONCLUSION: Consolidative changes right lower lobe with moderate right pleural effusion.. Jamaal Enrique MD FACR Thoracentesis Ultrasound 07/01/17 0000 Signed Impressions: Service Date/Time: Saturday, July 01, 2017 16:19 - CONCLUSION: Uncomplicated ultrasound guided right thoracentesis. The fluid was sent to the laboratory. Alexis Macias Jr., MD Objective Remarks GENERAL: Well-developed, well-nourished patient in NAD. SKIN: Warm and dry. No rash. HEAD: Normocephalic. Atraumatic. EYES: Pupils equal and round. No scleral icterus. No injection or drainage. ENT: No nasal bleeding or discharge. Mucous membranes pink and moist. NECK: Supple. Trachea midline. CARDIOVASCULAR: Regular rate and rhythm. S1, S2 noted. No murmur appreciated. RESPIRATORY: No accessory muscle use. Right posterior lobe with rhonchi throughout. Breath sounds equal bilaterally. GASTROINTESTINAL: Abdomen soft, non-tender, nondistended. Normoactive bowel sounds x4. MUSCULOSKELETAL: No obvious deformities. Extremities without clubbing, cyanosis , or edema. NEUROLOGICAL: Awake and alert. No obvious cranial nerve deficits. Motor grossly within normal limits. 5/5 muscle strength in bilateral upper and lower extremities. Normal speech. PSYCHIATRIC: Appropriate mood and affect; insight and judgment normal. A/P Problem List: (1) Pleural effusion on right ICD Code: J90 - Pleural effusion, not elsewhere classified Status: Acute Assessment and Plan This is a 56-year-old female patient with no significant medical history who presented to the ED with complaints of shortness of breath for 4 days. Right lower lobe pneumonia failed outpatient antibiotic therapy Moderate right pleural effusion Right lower lobe nodule rule out cancerous process versus infection versus inflammatory Patient had presented to the ED on June 13 and was given Ceftin, azithromycin and prednisone. Patient's symptoms have not improved. Chest x-ray reviewed showing consolidative changes right lower lobe with moderate right pleural effusion. Patient is afebrile. Blood cultures are pending. Influenza negative. No leukocytosis. Follow CBC. Lactic acid 1.2. Ultrasound-guided thoracentesis ordered. Performed and tolerated well, 1200 ml obtained. Follow cultures. CXR post thoracentesis showing 14 mm nodule within the right lower lobe previously obscured. Consult placed to pulmonology, appreciate further recommendations and input. Received azithromycin and ceftriaxone in ED. Continue. We will also continue IV steroids. Duo nebs scheduled and as needed. Supplemental O2 as needed. Control pain, [place] available as needed for pain scale. Supportive care. DVT prophylaxis: SCDs. Rosalba Minor Jul 02, 2017 10:42
[2017-07-02] MEDS: cefTRIAXone INJ 1,000 MG in SODIUM CHLORIDE 0.9% INJ 100 ML IV SCH (14:36)
[2017-07-02] MEDS: AZITHROMYCIN INJ 500 MG in SODIUM CHLOR 0.9% 250 ML INJ 250 ML IV SCH (16:44)
[2017-07-02] MEDS ORDERED: IOHEXOL 350 MG/ML 10 ML VIAL (for RAD DIAG) IVCONTRAST ONE (18:22)
--- NOTE | 2017-07-02 18:22 | RADRPT ---
EXAM DATE/TIME: 07/02/2017 18:02 [facility] COMPARISON: No previous studies available for comparison. INDICATIONS : Shortness of breath. IV CONTRAST: 100 cc Omnipaque 350 (iohexol) IV RADIATION DOSE: 6.42 CTDIvol (mGy) MEDICAL HISTORY : None SURGICAL HISTORY : section. ENCOUNTER: Initial ACUITY: 1 week PAIN SCALE: 0/10 LOCATION: Bilateral chest TECHNIQUE: Volumetric scanning of the chest was performed. Using automated exposure control and adjustment of t he mA and/or kV according to patient size, radiation dose was kept as low as reasonably achievable to obtain optimal diagnostic quality images. DICOM format image data is available electronically for review and comparison. Follow-up recommendations for detected pulmonary nodules are based at a minimum on nodule size and pa tient risk factors according to Fleischner Society Guidelines. FINDINGS: There are multiple pleural based masses in the right hemithorax measuring up to about 1.2 cm in thick ness. There are also pleural masses along the fissures bilaterally, right greater than left. Smaller pleural-based masses are present on the left. Several subcentimeter lung nodules also noted. Findings are most characteristic of pleural spread of tumor. There is right hilar adenopathy. There is a mass in the right breast measuring up to 5.4 x 3.4 cm suspicious for a breast carcinoma. T here is right axillary adenopathy measuring up to 1.8 cm in diameter. CONCLUSION: 1. Right-sided breast mass measuring up to 5.4 cm in diameter with likely metastatic disease to the p leura bilaterally and also to the right hilum and probable early metastatic disease other mediastinal lymph nodes as well. There is also right axillary serenity metastatic disease. Small residual right eff usion. No acute findings in the upper abdomen. Charan Gomez MD on July 02, 2017 at 18:16 Board Certified Radiologist. This report was verified electronically.
--- NOTE | 2017-07-02 20:40 | MB ---
cc: Karishma Schwarz MD, [place] W MD DATE OF CONSULT: 07/02/2017 REASON FOR CONSULTATION: Pleural effusion, pneumonia. HISTORY OF PRESENT ILLNESS: Mrs. Simpson is a 56-year-old female who visited the ER earlier this week with evidence of right lower lobe pneumonia and given Ceftin, Zithromax and prednisone and discharged home. She did improve for a few days, however, again symptoms recurred with increasing shortness of breath. She returns to the emergency room for same. She denies history of fever, chills, hemoptysis. A chest x-ray, however, revealed a right pleural effusion for which a thoracentesis was undertaken. The pleural fluid Gram stain was without organisms. I am asked to see the patient at this time for same. PAST MEDICAL HISTORY: Denies history of diabetes, hypertension or heart disease. She is a smoker. History of acid reflux. FAMILY HISTORY: Noncontributory. MEDICATIONS: At home albuterol p.r.n. ALLERGIES: NONE KNOWN TO MEDICATIONS. REVIEW OF SYSTEMS: A 12-point review of systems as per HPI and past history otherwise negative. PHYSICAL EXAMINATION: GENERAL: The patient is alert. VITAL SIGNS: Temperature 98, pulse 90, respiration 20, blood pressure 150/70, oxygen saturation 95% room air. HEENT: Unremarkable. Eyes without icterus. NECK: Without adenopathy or thyroid enlargement. CHEST: Decreased breath sounds, right base. CARDIAC: PMI fifth left space mid clavicular line, S1, S2 audible. No murmur, no rub. ABDOMEN: Lax, bowel sounds audible. EXTREMITIES: No cyanosis, clubbing or edema.. LABORATORY DATA: White count 9.7, hemoglobin 15, hematocrit 44, platelets 309,000. Sodium 136, potassium 3.8, BUN 9, creatinine 0.5. IMAGING STUDIES Chest x-ray: Right pleural effusion post thoracentesis. A 14 mm nodule, right lower lobe is noted. IMPRESSION: 1. Pneumonia. 2. Parapneumonic effusion. 3. Right lower lobe nodule. 4. Tobacco abuse. PLAN: The patient to be maintained on bronchodilator therapy as well as antibiotic therapy for underlying infection. Pleural fluid studies should be followed and reviewed. Meanwhile, a CT scan of the chest given the nodularity in the right lower lobe would be appropriate to assess the possibility for underlying malignancy, infection or other findings that may be present not seen on the routine chest x-ray. I do thank you for asking me to partake in Mrs. Simpson's care. Karishma Schwarz MD [email or web address] , 01:01 PM , 08:27 PM
--- NOTE | 2017-07-02 23:36 | EKG ---
Date Performed: 07/01/2017 Time Performed: 13:26:12 PTAGE: 56 years EKG: Sinus rhythm NORMAL ECG NO PREVIOUS TRACING DOCTOR: Edin Mendez Interpretating Date/Time 07/02/2017 23:34:38
[2017-07-03] VITALS (9 sets, daily range): BP systolic 133–155; BP diastolic 63–78; PULSE 74–102; RESP 18–20; TEMP 97.1–98.2; O2SAT 93–97
[2017-07-03] MEDS: methylPREDNISolone SOD SUCC 40 MG/1 ML VIAL IV PUSH SCH ×4 (06:00→22:15)
[2017-07-03] MEDS: RESP: ALBUTEROL 2.5 MG/IPRATROPIUM 0.5 MG NEB (SCH) NEB ×3 (08:06→20:16)
[2017-07-03] MEDS: SODIUM CHLORIDE 0.9% FLUSH 10 ML FLUSH IV FLUSH SCH ×2 (08:26→22:14)
--- NOTE | 2017-07-03 12:42 | HHI.PR ---
Subjective Remarks alert no sob sitting in chair Objective Vital Signs Date Time Temp Pulse Resp B/P (MAP) Pulse Ox O2 Delivery O2 Flow Rate FiO2 07/03/17 08:16 97 07/03/17 08:04 74 07/03/17 08:00 97.7 102 18 135/69 (91) 94 07/03/17 04:00 97.3 89 20 140/77 (98) 93 07/03/17 00:00 97.4 99 20 133/66 (88) 94 07/02/17 20:16 96 21 07/02/17 20:00 97.7 102 20 155/79 (104) 94 07/02/17 16:00 98.0 106 18 150/71 (97) 96 07/02/17 15:01 114 I/O 07/02/17 07/02/17 07/02/17 07/03/17 07/03/17 07/03/17 07:00 15:00 23:00 07:00 15:00 23:00 Intake Total 420 ml 350 ml 1440 ml Output Total 6 ml Balance 420 ml 344 ml 1440 ml Intake Oral 420 ml 1440 ml IV Total 350 ml Output Urine Total 6 ml # Voids 2 6 Result Diagram: 07/02/17 0853 07/02/17 0853 Objective Remarks GENERAL: SKIN: Warm and dry. HEAD: Atraumatic. Normocephalic. EYES: Pupils equal and round. No scleral icterus. No injection or drainage. ENT: No nasal bleeding or discharge. Mucous membranes pink and moist. NECK: Trachea midline. No JVD. CARDIOVASCULAR: Regular rate and rhythm. RESPIRATORY: No accessory muscle use. decrease breath sounds at basis to auscultation. Breath sounds equal bilaterally. GASTROINTESTINAL: Abdomen soft, non-tender, nondistended. Hepatic and splenic margins not palpable. MUSCULOSKELETAL: Extremities without clubbing, cyanosis, or edema. No obvious deformities. NEUROLOGICAL: Awake and alert. No obvious cranial nerve deficits. Motor grossly within normal limits. Five out of 5 muscle strength in the arms and legs. Normal speech. PSYCHIATRIC: Appropriate mood and affect; insight and judgment normal. Assessment and Plan Assessment and Plan ass: pleural effusion [place] mass, with probable mets causing the effusions PLAN CONSULT ONCOLOGY CHECK CYTOLOGY Karishma Schwarz MD Jul 03, 2017 12:42
--- NOTE | 2017-07-03 12:44 | HHI.PR ---
Subjective Remarks Follow-up pneumonia and lung nodule. Patient seen and examined, lying in bed comfortably. CT results reviewed overnight. There is a 5.4 cm mass in right breast. As well as suspected metastatic disease to the lung and lymph nodes. Patient and seen at bedside, and reviewed report. All questions answered. Patient is somewhat emotional. Consult placed to oncologist, spoke to Dr. Angulo who will be in later today to develop a treatment plan. Objective Vitals Vital Signs Date Time Temp Pulse Resp B/P (MAP) Pulse Ox O2 Delivery O2 Flow Rate FiO2 07/03/17 08:16 97 07/03/17 08:04 74 07/03/17 08:00 97.7 102 18 135/69 (91) 94 07/03/17 04:00 97.3 89 20 140/77 (98) 93 07/03/17 00:00 97.4 99 20 133/66 (88) 94 07/02/17 20:16 96 21 07/02/17 20:00 97.7 102 20 155/79 (104) 94 07/02/17 16:00 98.0 106 18 150/71 (97) 96 07/02/17 15:01 114 I/O 07/02/17 07/02/17 07/02/17 07/03/17 07/03/17 07/03/17 07:00 15:00 23:00 07:00 15:00 23:00 Intake Total 420 ml 350 ml 1440 ml Output Total 6 ml Balance 420 ml 344 ml 1440 ml Intake Oral 420 ml 1440 ml IV Total 350 ml Output Urine Total 6 ml # Voids 2 6 Result Diagram: 07/02/17 0853 07/02/17 0853 Imaging Last Impressions Chest CT 07/02/17 0000 Signed Impressions: Service Date/Time: Sunday, July 02, 2017 18:02 - CONCLUSION: 1. Right- sided breast mass measuring up to 5.4 cm in diameter with likely metastatic disease to the pleura bilaterally and also to the right hilum and probable early metastatic disease other mediastinal lymph nodes as well. There is also right axillary serenity metastatic disease. Small residual right effusion. No acute findings in the upper abdomen. Charan Gomez MD Chest X-Ray 07/01/17 1317 Signed Impressions: Service Date/Time: Saturday, July 01, 2017 13:38 - CONCLUSION: Consolidative changes right lower lobe with moderate right pleural effusion.. Jamaal Enrique MD FACR Thoracentesis Ultrasound 07/01/17 0000 Signed Impressions: Service Date/Time: Saturday, July 01, 2017 16:19 - CONCLUSION: Uncomplicated ultrasound guided right thoracentesis. The fluid was sent to the laboratory. Alexis Macias Jr., MD Objective Remarks GENERAL: Well-developed, well-nourished patient in NAD. SKIN: Warm and dry. No rash. Right breast nodule palpated HEENT: Normocephalic. Atraumatic. Pupils equal and round. No scleral icterus. No injection or drainage. No nasal bleeding or discharge. Mucous membranes pink and moist. NECK: Supple. Trachea midline. CARDIOVASCULAR: Regular rate and rhythm. S1, S2 noted. No murmur appreciated. RESPIRATORY: No accessory muscle use. Right posterior lobe with rhonchi throughout. Breath sounds equal bilaterally. GASTROINTESTINAL: Abdomen soft, non-tender, nondistended. Normoactive bowel sounds x4. MUSCULOSKELETAL: No obvious deformities. Extremities without clubbing, cyanosis , or edema. NEUROLOGICAL: Awake and alert. No obvious cranial nerve deficits. Motor grossly within normal limits. 5/5 muscle strength in bilateral upper and lower extremities. Normal speech. PSYCHIATRIC: Appropriate mood and affect; insight and judgment normal. A/P Problem List: (1) Pleural effusion on right ICD Code: J90 - Pleural effusion, not elsewhere classified Status: Acute Assessment and Plan This is a 56-year-old female patient with no significant medical history who presented to the ED with complaints of shortness of breath for 4 days. Right lower lobe pneumonia failed outpatient antibiotic therapy Moderate right pleural effusion Right lower lobe nodule/right-sided breast mass suspect secondary to cancerous process Patient had presented to the ED on June 13 and was given Ceftin, azithromycin and prednisone. Patient's symptoms have not improved. Chest x-ray reviewed showing consolidative changes right lower lobe with moderate right pleural effusion. Patient is afebrile. Blood cultures no growth to date, continue to follow. Influenza negative. Follow CBC. Lactic acid 1.2. Ultrasound-guided thoracentesis ordered. Performed and tolerated well, 1200 ml obtained. Follow cultures. CXR post thoracentesis showing 14 mm nodule within the right lower lobe previously obscured. Consult placed to pulmonology, appreciate further recommendations and input. Chest CT reviewed showing right-sided breast mass measuring up to 5.4 cm in diameter with likely metastatic disease to the pleura bilaterally and also the right hilum and probable early metastatic disease other mediastinal lymph nodes as well. Consult placed to oncologist, appreciate further input recommendations. Consult also placed to general surgery for possible biopsy of right breast mass. Received azithromycin and ceftriaxone in ED. Continue. We will also continue IV steroids. Duo nebs scheduled and as needed. Supplemental O2 as needed. Control pain, [place] available as needed for pain scale. Supportive care. DVT prophylaxis: SCDs. Rosalba Minor Jul 03, 2017 12:44
[2017-07-03] MEDS: cefTRIAXone INJ 1,000 MG in SODIUM CHLORIDE 0.9% INJ 100 ML IV SCH (13:03)
[2017-07-03 13:35] LABS: AUTOMATED NEUTROPHIL # 19.5 TH/MM3 (1.8-7.7); BASOPHIL # 0.4 TH/MM3 (0-0.2); BASOPHIL % 1.7 % (0.0-2.0); EOSINOPHIL % 0.1 % (0.0-4.0); HEMATOCRIT 43.4 % (35.0-46.0); HEMOGLOBIN 14.7 GM/DL (11.6-15.3); LYMPH % 5.3 % (9.0-44.0); LYMPHOCYTE # 1.2 TH/MM3 (1.0-4.8); MEAN CELL VOLUME 94.8 FL (80.0-100.0); MEAN CORPUSCULAR HGB CONC 33.8 % (32.0-36.0); MEAN PLATELET VOLUME 8.4 FL (7.0-11.0); MONOCYTE # 0.7 TH/MM3 (0-0.9); NEUT % 89.9 % (16.0-70.0); PLATELET COUNT 301 TH/MM3 (150-450); RED BLOOD COUNT 4.58 MIL/MM3 (4.00-5.30); WHITE BLOOD COUNT 21.8 TH/MM3 (4.0-11.0)
[2017-07-03] MEDS: AZITHROMYCIN INJ 500 MG in SODIUM CHLOR 0.9% 250 ML INJ 250 ML IV SCH (16:44)
[2017-07-04] VITALS: BP 131/65; PULSE 92; RESP 18; TEMP 97.4; O2SAT 95
[2017-07-04 08:00] VITALS: BP 157/74; PULSE 82; RESP 18; TEMP 97.7; O2SAT 96
[2017-07-04] MEDS: RESP: ALBUTEROL 2.5 MG/IPRATROPIUM 0.5 MG NEB (SCH) NEB ×2 (08:01→14:42)
--- NOTE | 2017-07-04 08:56 | HHI.DCPOC ---
Discharge Care Plan Diagnosis: (1) Pleural effusion on right (2) Breast mass (3) Pneumonia Goals to Promote Your Health * To prevent worsening of your condition and complications * To maintain your health at the optimal level Directions to Meet Your Goals Take your medications as prescribed Follow your dietary instruction Follow activity as directed Keep your appointments as scheduled Take your immunizations and boosters as scheduled If your symptoms worsen call your PCP, if no PCP go to Urgent Care Center or Emergency Room Smoking is Dangerous to Your Health. Avoid second hand smoke Call the 24-hour hour crisis hotline for domestic abuse at Rosalba Minor Jul 04, 2017 08:56
[2017-07-04] MEDS ORDERED: PRED20 PO (08:58)
[2017-07-04] MEDS ORDERED: AZIT500T2 PO (08:58)
--- NOTE | 2017-07-04 08:58 | HHI.DCPOC ---
Discharge Care Plan Diagnosis: (1) Pneumonia (2) Breast mass (3) Pleural effusion on right Goals to Promote Your Health * To prevent worsening of your condition and complications * To maintain your health at the optimal level Directions to Meet Your Goals Take your medications as prescribed Follow your dietary instruction Follow activity as directed Keep your appointments as scheduled Take your immunizations and boosters as scheduled If your symptoms worsen call your PCP, if no PCP go to Urgent Care Center or Emergency Room Smoking is Dangerous to Your Health. Avoid second hand smoke Call the 24-hour hour crisis hotline for domestic abuse at Rosalba Minor Jul 04, 2017 08:58
[2017-07-04] MEDS: SODIUM CHLORIDE 0.9% FLUSH 10 ML FLUSH IV FLUSH SCH (09:25)
[2017-07-04] MEDS: methylPREDNISolone SOD SUCC 40 MG/1 ML VIAL IV PUSH SCH (09:25)
--- NOTE | 2017-07-04 09:46 | PD.CONS ---
cc: Iraj Hancock MD [facility] Service General Surgery Consult Requested By Rosalba BAHENA Reason for Consult RIGHT breast biopsy Primary Care Physician No Primary Care Physician History of Present Illness This is a 56 year old female with a past medical history of GERD who presented to the ED with complaints of shortness of breath. Of note, she was recently admitted on June 13 for similar symptoms and diagnosed with RIGHT lower lobe pneumonia. She was discharged in stable condition with prescriptions for steroids and antibiotics. She came back to the ED several days later due to increased symptoms. The patient stated that she first noticed a lump in the RIGHT breast about a year ago that has progressed in size. She has not had any medical workup for this. She denies pain. She does report discharge from the area. A CT chest was obtained which visualized a 5.4 cm mass in the RIGHT breast with possible metastatic disease to the lymph nodes and lung. Dr. Angulo with Oncology has been consulted as well. A General Surgery consultation has been requested for RIGHT breast biopsy. Review of Systems Constitutional: DENIES: Weight loss, Change in appetite Endocrine: DENIES: Polydipsia, Polyuria, Polyphagia Eyes: DENIES: Diplopia Ears, nose, mouth, throat: DENIES: Hearing loss Respiratory: COMPLAINS OF: Shortness of breath, DENIES: Cough Cardiovascular: DENIES: Palpitations, Syncope Gastrointestinal: DENIES: Abdominal pain, Nausea, Vomiting Genitourinary: DENIES: Urinary frequency Musculoskeletal: DENIES: Joint pain Integumentary: COMPLAINS OF: Breast masses (RIGHT sided breast mass ), Breast skin changes, Nipple discharge Hematologic/lymphatic: DENIES: Bruising Immunologic/allergic: DENIES: Eczema Neurologic: DENIES: Abnormal gait, Localized weakness Psychiatric: DENIES: Anxiety, Confusion, Mood changes Past Family Social History Past Medical History GERD Past Surgical History C section x 1 Reported Medications Prilosec Allergies: Coded Allergies: No Known Allergies (Unverified Adverse Reaction, Unknown, 07/01/17) Active Ordered Medications Current Medications Medications (Trade) Dose Ordered Sig/Sin Route Start Time Stop Time Status Last Admin (NS Flush) 2 ml UNSCH PRN IV FLUSH 3/9/18 15:15 (NS Flush) 2 ml BID IV FLUSH 07/01/17 21:00 07/04/17 09:25 (Zofran Inj) 4 mg Q6H PRN IVP 07/01/17 15:15 ([place] 5-325 Mg) 1 tab Q4H PRN PO 07/01/17 15:15 ([place] 10-325 Mg) 1 tab Q4H PRN PO 07/01/17 15:15 (Narcan Inj) 0.4 mg UNSCH PRN IV PUSH 07/01/17 15:15 (Milk Of Magnesia Liq) 30 ml Q12H PRN PO 07/01/17 15:15 (Proair Hfa Inh) 2 puff BID PRN INH 07/01/17 16:45 Ceftriaxone Sodium 1000 mg/ Sodium Chloride 100 ml @ 200 mls/hr Q24H IV 07/02/17 14:00 07/03/17 13:03 Azithromycin 500 mg/Sodium Chloride 250 ml @ 250 mls/hr Q24H IV 07/02/17 16:00 07/03/17 16:44 (Duoneb Neb) 1 ampule Q6HR WHILE AWAKE NEB NEB 07/01/17 20:00 07/04/17 08:01 (Duoneb Neb) 1 ampule Q2HR NEB PRN NEB 07/01/17 17:45 (SoluMEDROL INJ) 40 mg BID IV PUSH 07/03/17 21:00 07/04/17 09:25 Family History Mother of breast cancer when she was 50 years ago; several maternal family members with cancer unsure of details Social History + tobacco use---1 ppd for many years + ETOH use---2-3 beers daily Denies illicit drug use Works at [employer]. Physical Exam Vital Signs Vital Signs Date Time Temp Pulse Resp B/P (MAP) Pulse Ox O2 Delivery O2 Flow Rate FiO2 07/04/17 00:00 97.4 92 18 131/65 (87) 95 07/03/17 20:16 94 21 07/03/17 20:00 97.1 96 18 137/67 (90) 95 07/03/17 16:00 98.2 95 18 134/63 (86) 95 07/03/17 12:00 97.3 97 18 155/78 103 95 Physical Exam GENERAL: Pleasant 56 year old female resting in bed in no acute distress. SKIN: Warm and dry. HEAD: Atraumatic. Normocephalic. EYES: Pupils equal and round. No scleral icterus. No injection or drainage. ENT: No nasal bleeding or discharge. Mucous membranes pink and moist. NECK: Trachea midline. BREAST: LEFT breast--- no palpable mass on exam; RIGHT breast--- disfigured breast; several palpable masses greatest one at the 7 o'clock position; clear discharge; inverting nipple. CARDIOVASCULAR: Regular rate and rhythm. RESPIRATORY: No accessory muscle use. Clear to auscultation. Breath sounds equal bilaterally. GASTROINTESTINAL: Abdomen soft, non-tender, nondistended. MUSCULOSKELETAL: Extremities without clubbing, cyanosis, or edema. No obvious deformities. NEUROLOGICAL: Awake and alert. No obvious cranial nerve deficits. Motor grossly within normal limits. Five out of 5 muscle strength in the arms and legs. Normal speech. PSYCHIATRIC: Appropriate mood and affect; insight and judgment normal. Laboratory Laboratory Tests Test 07/03/17 13:15 07/04/17 08:05 White Blood Count 21.8 Red Blood Count 4.58 Hemoglobin 14.7 Hematocrit 43.4 Mean Corpuscular Volume 94.8 Mean Corpuscular Hemoglobin 32.0 Mean Corpuscular Hemoglobin Concent 33.8 Red Cell Distribution Width 13.0 Platelet Count 301 Mean Platelet Volume 8.4 Neutrophils (%) (Auto) 89.9 Lymphocytes (%) (Auto) 5.3 Monocytes (%) (Auto) 3.0 Eosinophils (%) (Auto) 0.1 Basophils (%) (Auto) 1.7 Neutrophils # (Auto) 19.5 Lymphocytes # (Auto) 1.2 Monocytes # (Auto) 0.7 Eosinophils # (Auto) 0.0 Basophils # (Auto) 0.4 CBC Comment AUTO DIFF Differential Comment AUTO DIFF CONFIRMED Date/Time Source Procedure Growth Status 07/01/17 14:28 Blood Peripheral Aerobic Blood Culture - Preliminary NO GROWTH IN 2 DAYS Resulted 07/01/17 14:28 Blood Peripheral Anaerobic Blood Culture - Preliminary NO GROWTH IN 2 DAYS Resulted 07/01/17 16:59 Fluid Pleural Fluid Fungal Smear - Final NO FUNGAL ELEMENTS SEEN. Resulted 07/01/17 16:59 Fluid Pleural Fluid Fungal Culture Pending Resulted 07/01/17 13:28 Nasal Aspirate Influenza Types A,B Antigen (RADHA) - Final NEGATIVE FOR FLU A AND B ANTIGEN.... Complete Assessment and Plan Assessment and Plan 56 year old female with RIGHT sided breast mass concerning for carcinoma; RIGHT axillary adenopathy; possible metastatic disease to the lung -Will arrange for outpatient breast biopsy -Regular diet -Follow up Tuesday with Dr. Angulo -We can also arrange to place her Infusaport -Patient can follow up as outpatient -Thank you for this consult Discussed Condition With Dr. Santi Plasencia and Rosalba BAHENA Ms. Simpson + daughter at bedside Attending Statement patient seen at bedside large breast mass high concern for metastatic disease bx as out patient oncology consult will likely need port placement will present at [facility] Attestation The exam, history, and the medical decision-making described in the above note were completed with the assistance of the mid-level provider. I reviewed and agree with the findings presented. I attest that I had a [id number] encounter with the patient on the same day, and personally performed and documented my assessment and findings in the medical record. Lu Dyer/[employer] ARNP Jul 04, 2017 09:46 Iraj Hancock MD Jul 08, 2017 21:35
[2017-07-04 11:22] LABS: CARCINOEMBRYONIC ANTIGEN 10.8 NG/ML (0.2-5.0)
[2017-07-04 12:00] VITALS: BP 130/61; PULSE 86; RESP 16; TEMP 97.4; O2SAT 92
--- NOTE | 2017-07-04 12:18 | MB ---
cc: Sanna Angulo MD DATE OF CONSULT: 07/03/2017 REASON FOR CONSULTATION: Consult requested by hospitalist for evaluation of right breast mass. HISTORY OF PRESENT ILLNESS: Hannah is a pleasant 56-year-old female. She is without any significant past medical history. She does not have any local medical doctor. She stated that she was in her usual status of health until about 3 weeks ago, she developed shortness of breath and cough. She came into the emergency room. She was diagnosed with pneumonia. She was given antibiotics. However, her symptoms did not improve. She now returned to the emergency room the day before yesterday with similar symptoms of shortness of breath and cough. She had a chest x-ray which showed right pleural effusion. The patient was subsequently admitted to the hospital. Pulmonary was consulted. The patient underwent diagnostic and therapeutic thoracentesis, which she tolerated well. The post procedure chest x-ray showed no pneumothorax, but there was a 1.4 cm nodule noted in the right lower lobe, previously which was obscured by the effusion. Therefore, a CAT scan of the chest was performed, which showed right-sided breast mass measuring up to 5.4 cm with metastatic disease to the pleura bilaterally and also to the right hilum and probably early metastatic disease to the other mediastinal lymph nodes. There is also right axillary serenity metastatic disease noted. The residual right pleural effusion is small. No acute findings noted in the upper abdomen. Due to this new finding on the CAT scan with a breast mass, I have been asked to see her for further evaluation. The patient stated that she noticed a right breast mass a year ago. However, she did not seek any medical advice. She stated that she was scared to know that she may have breast cancer. She did not discuss with her family members either. Her daughter was present during the interview. Patient noticed that in the last few months her right nipple was getting inverted. She did not have any bleeding or ulceration or any foul smelling discharge. She knew there was something wrong in the breast, but she was scared to know and that is the reason she did not seek any medical advice. The rest of the review of systems is negative. PAST MEDICAL HISTORY: None. PAST SURGICAL HISTORY: x 1. ALLERGIES: NONE. MEDICATIONS: Prior to coming to the hospital were none. FAMILY HISTORY: Father from heart disease. Mother from breast cancer at the age of 50. The patient has 2 brothers. No sister. One son and 1 daughter, all are alive and well. She does not have any other family members who have breast cancer like an aunt, uncle, cousins or niece. SOCIAL HISTORY: The patient is , lives with her . She smokes cigarettes 1 pack a day for 25 years. Also, drinks alcohol 3-4 drinks every day. She works as a senior sql server developer. PHYSICAL EXAMINATION: GENERAL: This is a well developed, well nourished white female in no apparent distress. VITAL SIGNS: Temperature 97.1, heart rate is 96, blood pressure is 137/67, O2 saturation 95%. HEENT: PERRLA, EOMI, anicteric. No oral lesions noted. NECK: No lymphadenopathy noted. PULMONARY: Lungs are clear. No wheezing, rhonchi or rales. CARDIOVASCULAR: Heart has regular rate and rhythm. BREASTS: The patient was examined in the presence of nurse's aid and the daughter. The left breast has no masses. Right breast there is a very large around 5 cm hard mass noted with inversion of the nipple. The right breast is smaller than the left. No ulceration noted. There is a right axillary fullness noted as well. ABDOMEN: Soft, nontender. No hepatosplenomegaly. EXTREMITIES: No pedal edema. NEUROLOGIC: Awake, alert and oriented x 3. SKIN: No significant lesions are noted. ASSESSMENT: Neglected right breast mass with right axillary lymphadenopathy, mediastinal and right hilar lymphadenopathy and right pleural effusion. This is most likely consistent with metastatic breast cancer until proven otherwise. PLAN: I have reviewed her available records and I had an extensive discussion with the patient and her daughter regarding the abnormality noted on the CAT scan of the chest. She has 5.4 cm right breast mass. She also has right axillary lymphadenopathy. She presented with right pleural effusion, which has been drained. The cytology is still pending. My recommendation is for ultrasound-guided core needle biopsy of the right breast mass. This can be done as an outpatient. She will also need a PET scan to stage her breast cancer. The PET scan will be done as an outpatient as well. Once we have the pathology report and PET scan results, then we will discuss with the patient regarding the treatment options. From Oncology standpoint, she could be discharged to home and I will see her in the office on July 06. I have discussed this with the patient's nurse who will call my office in the morning to set up an appointment for her to come see me on Tuesday at the [place] office on July 06. I gave my office number to the patient as well so that she can call tomorrow for confirmation of the appointment. Thank you for asking my opinion. MD ALYSON Begum/KYLAH , 11:55 PM , 12:45 AM LINDA
--- NOTE | 2017-07-04 14:00 | HHI.PR ---
Subjective Remarks alert no sob sitting in chair Objective Vital Signs Date Time Temp Pulse Resp B/P (MAP) Pulse Ox O2 Delivery O2 Flow Rate FiO2 07/04/17 08:00 97.7 82 18 157/74 (101) 96 07/04/17 00:00 97.4 92 18 131/65 (87) 95 07/03/17 20:16 94 21 07/03/17 20:00 97.1 96 18 137/67 (90) 95 07/03/17 16:00 98.2 95 18 134/63 (86) 95 I/O 07/03/17 07/03/17 07/03/17 07/04/17 07/04/17 07/04/17 07:00 15:00 23:00 07:00 15:00 23:00 Intake Total 1440 ml 100 ml 850 ml 1000 ml 0 ml Balance 1440 ml 100 ml 850 ml 1000 ml 0 ml Intake Oral 1440 ml 600 ml 1000 ml 0 ml IV Total 100 ml 250 ml # Voids 6 4 9 Result Diagram: 07/03/17 1315 07/02/17 0853 Objective Remarks GENERAL: SKIN: Warm and dry. HEAD: Atraumatic. Normocephalic. EYES: Pupils equal and round. No scleral icterus. No injection or drainage. ENT: No nasal bleeding or discharge. Mucous membranes pink and moist. NECK: Trachea midline. No JVD. CARDIOVASCULAR: Regular rate and rhythm. RESPIRATORY: No accessory muscle use. decrease breath sounds at basis to auscultation. Breath sounds equal bilaterally. GASTROINTESTINAL: Abdomen soft, non-tender, nondistended. Hepatic and splenic margins not palpable. MUSCULOSKELETAL: Extremities without clubbing, cyanosis, or edema. No obvious deformities. NEUROLOGICAL: Awake and alert. No obvious cranial nerve deficits. Motor grossly within normal limits. Five out of 5 muscle strength in the arms and legs. Normal speech. PSYCHIATRIC: Appropriate mood and affect; insight and judgment normal. Assessment and Plan Assessment and Plan ass: COPD pleural effusion [place] mass, with probable mets causing the effusions PLAN BRONCHODILATOR TERAPY CHECK CYTOLOGY Karishma Schwarz MD Jul 04, 2017 14:00
--- NOTE | 2017-07-04 14:08 | HHI.DS ---
Discharge Summary Admission Date Jul 01, 2017 at 15:11 Discharge Date: Jul 04, 2017 Admitting Diagnosis Right pleural effusion (1) Pleural effusion on right ICD Code: J90 - Pleural effusion, not elsewhere classified Status: Acute Procedures Please see below Brief History - From Admission This is a 56-year-old female patient with no significant medical history who presented to the ED with complaints of shortness of breath for 4 days. Patient states that she presented to [facility] on June 13 with complaint of shortness of breath and diagnosed with right lower lobe pneumonia patient was discharged with Ceftin, azithromycin and prednisone. Patient states that her symptoms did improve but she still started to feel symptoms return roughly 4 days ago. Patient denies any recent fever, chills, headache, abdominal pain, nausea, vomiting or diarrhea. She does admit to a nonproductive cough, has been using her Ventolin inhaler intermittently. Patient does not see a PCP. Patient is a smoker, smokes 1 pack per day cigarettes. Denies any history of pulmonary disease. CBC/BMP: 07/03/17 1315 07/02/17 0853 Significant Findings Laboratory Tests Test 07/01/17 14:20 07/01/17 14:25 07/01/17 16:59 07/02/17 08:53 Activated Partial Thromboplast Time 23.3 SEC (24.3-30.1) Pleural Fluid WBC 433 /MM3 (0-10) Pleural Fluid RBC 656 /MM3 (0-0) White Blood Count 17.1 TH/MM3 (4.0-11.0) Neutrophils (%) (Auto) 90.9 % (16.0-70.0) Lymphocytes (%) (Auto) 5.6 % (9.0-44.0) Neutrophils # (Auto) 15.5 TH/MM3 (1.8-7.7) Blood Urea Nitrogen 5 MG/DL (7-18) Random Glucose 192 MG/DL (74-106) Test 07/03/17 13:15 07/04/17 08:05 White Blood Count 21.8 TH/MM3 (4.0-11.0) Neutrophils (%) (Auto) 89.9 % (16.0-70.0) Lymphocytes (%) (Auto) 5.3 % (9.0-44.0) Neutrophils # (Auto) 19.5 TH/MM3 (1.8-7.7) Basophils # (Auto) 0.4 TH/MM3 (0-0.2) Carcinoembryonic Antigen 10.8 NG/ML (0.2-5.0) Imaging Last Impressions Chest CT 07/02/17 0000 Signed Impressions: Service Date/Time: Sunday, July 02, 2017 18:02 - CONCLUSION: 1. Right- sided breast mass measuring up to 5.4 cm in diameter with likely metastatic disease to the pleura bilaterally and also to the right hilum and probable early metastatic disease other mediastinal lymph nodes as well. There is also right axillary serenity metastatic disease. Small residual right effusion. No acute findings in the upper abdomen. Charan Gomez MD Chest X-Ray 07/01/17 1317 Signed Impressions: Service Date/Time: Saturday, July 01, 2017 13:38 - CONCLUSION: Consolidative changes right lower lobe with moderate right pleural effusion.. Jamaal Enrique MD FACR Thoracentesis Ultrasound 07/01/17 0000 Signed Impressions: Service Date/Time: Saturday, July 01, 2017 16:19 - CONCLUSION: Uncomplicated ultrasound guided right thoracentesis. The fluid was sent to the laboratory. Alexis Macias Jr., MD PE at Discharge GENERAL: Well-developed, well-nourished patient in [facility]. SKIN: Warm and dry. No rash. Right breast nodule palpated HEENT: Normocephalic. Atraumatic. Pupils equal and round. No scleral icterus. No injection or drainage. No nasal bleeding or discharge. Mucous membranes pink and moist. NECK: Supple. Trachea midline. CARDIOVASCULAR: Regular rate and rhythm. S1, S2 noted. No murmur appreciated. RESPIRATORY: No accessory muscle use. Right posterior lobe with rhonchi throughout. Breath sounds equal bilaterally. GASTROINTESTINAL: Abdomen soft, non-tender, nondistended. Normoactive bowel sounds x4. MUSCULOSKELETAL: No obvious deformities. Extremities without clubbing, cyanosis , or edema. NEUROLOGICAL: Awake and alert. No obvious cranial nerve deficits. Motor grossly within normal limits. 5/5 muscle strength in bilateral upper and lower extremities. Normal speech. PSYCHIATRIC: Appropriate mood and affect; insight and judgment normal. Pt update on day of discharge Follow-up right breast mass and pneumonia. Patient seen and examined, lying in bed comfortably. Eager to go home. All symptoms have resolved. Eating well. Ambulating well. Pain is not present. General surgery and to see patient, will arrange outpatient biopsy. Appointment with oncologist on Tuesday. Hospital Course This is a 56-year-old female patient with no significant medical history who presented to the ED with complaints of shortness of breath for 4 days. Right lower lobe pneumonia failed outpatient antibiotic therapy with moderate right pleural effusion on presentation. Patient had presented to the ED on June 13 and was given Ceftin, azithromycin and prednisone. Patient was afebrile in presentation. Blood cultures during hospital stay with no growth. Influenza negative. Lactic acid 1.2. Chest x-ray showing consolidative changes right lower lobe with moderate right pleural effusion. Ultrasound-guided thoracentesis performed, 1200 ml obtained. Cultures were sent. Post thoracentesis CXR showing 14 mm nodule within the right lower lobe previously obscured. Chest CT reviewed showing right-sided breast mass measuring up to 5.4 cm in diameter with likely metastatic disease to the pleura bilaterally and also the right hilum and probable early metastatic disease other mediastinal lymph nodes as well. Consult placed to pulmonology who followed patient during hospitalization. Consult was also placed to oncologist, who arranged outpatient follow-up upon discharge. Consult also placed to general surgery to undergo right breast mass biopsy. Patient was given IV antibiotics during stay as well as IV steroids and IV fluids. Duo nebs are scheduled and as needed. Pain was controlled with [place]. Patient was stable at discharge. And agreeable to follow-up. Pt Condition on Discharge: Good Discharge Disposition: Discharge Home Discharge Time: <= 30 minutes Discharge Instructions DIET: Follow Instructions for: As Tolerated, No Restrictions Activities you can perform: Regular-No Restrictions Follow up Referrals: Appointment for Follow Up Outpatient biospy at imaging center. Oncology/Hematology - 2-3 Days with Justina Angulo MD Make appointment for PCP Follow-up - 1 Week Surgical with Iraj Hancock MD New Medications: Azithromycin (Azithromycin) 500 Mg Tab 500 MG PO DAILY for Infection for 3 Days, #3 TAB 0 Refills Prednisone (Prednisone) 20 Mg Tab 20 MG PO DAILY for inflammation for 5 Days, #5 TAB 0 Refills Continued Medications: Albuterol 8.5 GM Inh (Proair Hfa 8.5 GM Inh) 90 Mcg/Act Aer 2 PUFF INH Q4-6H PRN for SHORTNESS OF BREATH, #1 INHALER 0 Refills 108 mcg/actuation Omeprazole Magnesium (Prilosec) 20 Mg Tab Rosalba Minor Jul 04, 2017 14:08
[2017-07-04 16:00] VITALS: BP 130/64; PULSE 89; RESP 16; TEMP 97.8; O2SAT 92
[2017-07-04] MEDS: cefTRIAXone INJ 1,000 MG in SODIUM CHLORIDE 0.9% INJ 100 ML IV SCH (16:02)
[2017-07-05 15:33] LABS: AMYLASE BODY FLUID 50 U/L; AMYLASE BODY FLUID TYPE PLEURAL
[2017-07-06 00:52] LABS: CA 15-3 655.7 U/ML (0.0-32.4)
== END 2017-07-04 18:09 | disposition home or self-care (01) | DRG 186 ==
LOC: PHED 13:02 → PHEDA 15:11 → PH3A 16:06
PROVIDERS: ADMIT Hospitalist; ATTEND Hospitalist
PROC: 0W994ZX Drainage of Right Pleural Cavity, Percutaneous Endoscopic Approach, Diagnostic (ICD-10-PCS; principal; 2017-07-01)
DX: J90 Pleural effusion, not elsewhere classified (principal); J18.9 Pneumonia, unspecified organism; C77.3 Secondary and unspecified malignant neoplasm of axilla and upper limb lymph nodes; C50.911 Malignant neoplasm of unspecified site of right female breast; J44.0 Chronic obstructive pulmonary disease with (acute) lower respiratory infection; C78.00 Secondary malignant neoplasm of unspecified lung; J44.9 Chronic obstructive pulmonary disease, unspecified; F17.210 Nicotine dependence, cigarettes, uncomplicated; K21.9 Gastro-esophageal reflux disease without esophagitis; R91.1 Solitary pulmonary nodule; N63.10 Unspecified lump in the right breast, unspecified quadrant; R59.0 Localized enlarged lymph nodes
CPT/HCPCS: 32555; 71045; 71260; 80048; 80053; 82150; 82378; 82945; 83605; 83615; 83735; 83986; 84157; 84484; 85025; 85610; 85730; 86300; 86850; 86900; 86901; 87015; 87040; 87070; 87102; 87116; 87205; 87206; 87804; 88112; 88305; 88341; 89051; 93005; 94640; 94664; 96374; C1729; J0456; J0696; J2920; J2930; J7050; Q9967

== ENCOUNTER 2017-08-11 07:22 | Day surgery (SDC) | payer OTHER ==
[~2017-08-11] VITALS: Ht 165.1 cm; Wt 61.4 kg
[2017-08-11] VITALS (7 sets, daily range): BP systolic 109–132; BP diastolic 68–95; PULSE 76–93; RESP 17–18; TEMP 98.7; O2SAT 93–97
[~2017-08-11 07:22] MED LIST changes: +AZIT500T2 PO; -CEFU1TAB18 PO; -ZITH500T PO
[2017-08-11] MEDS ORDERED: VANCOMYCIN 1000 MG/NS 250 ML - implanted port/tunneled catheter IV SCH ×2 (08:00)
[2017-08-11] MEDS ORDERED: POVIDONE IODINE 5% (ANTISEPSIS KIT) 4 APPLICATIONS EACH NARE SCH (08:00)
[2017-08-11] MEDS ORDERED: CHLORHEXIDINE GLUCONATE 2 % 1 PACK (2 CLOTHS) TOPICAL SCH (08:00)
[2017-08-11] MEDS ORDERED: SODIUM CHLORIDE 0.9% 1000 ML IV SCH (08:00)
[2017-08-11] MEDS ORDERED: ceFAZolin 2 GM PREMIX 50 ML - implanted port/tunneled catheter insertion IV SCH (08:00)
[2017-08-11 09:08] LABS: AUTOMATED NEUTROPHIL # 4.4 TH/MM3 (1.8-7.7); BASOPHIL # 0.1 TH/MM3 (0-0.2); BASOPHIL % 0.7 % (0.0-2.0); EOSINOPHIL # 0.1 TH/MM3 (0-0.4); HEMATOCRIT 39.2 % (35.0-46.0); HEMOGLOBIN 13.5 GM/DL (11.6-15.3); LYMPH % 25.9 % (9.0-44.0); MEAN CELL VOLUME 94.6 FL (80.0-100.0); MEAN CORPUSCULAR HEMOGLOBIN 32.5 PG (27.0-34.0); MEAN CORPUSCULAR HGB CONC 34.4 % (32.0-36.0); MONO % 14.5 % (0.0-8.0); MONOCYTE # 1.1 TH/MM3 (0-0.9); NEUT % 57.9 % (16.0-70.0); PLATELET COUNT 303 TH/MM3 (150-450); RED BLOOD COUNT 4.15 MIL/MM3 (4.00-5.30); RED CELL DISTRIBUTION WIDTH 13.5 % (11.6-17.2); WHITE BLOOD COUNT 7.6 TH/MM3 (4.0-11.0)
[2017-08-11] MEDS ORDERED: fentaNYL CITRATE 250 MCG/5 ML AMP ONE (09:50)
[2017-08-11] MEDS ORDERED: MIDAZOLAM HCL 2 MG/2 ML VIAL ONE (09:50)
[2017-08-11] MEDS ORDERED: LIDOCAINE 1%/EPINEPHrine 1:100,000 SOLN 30 ML VIAL ONE (10:08)
--- NOTE | 2017-08-11 11:55 | RADRPT ---
EXAM DATE/TIME: 08/11/2017 10:29 [facility] COMPARISON: No previous studies available for comparison. INDICATIONS : Patient presents with breast cancer in need of port placement for treatment. MEDICAL HISTORY : Breast cancer GERD Tobacco use Pneumonia Pleural effusion SURGICAL HISTORY : ENCOUNTER: Initial ACUITY: 1 month PAIN SCORE: 0/10 LOCATION: N/A FLUORO TIME: 0.2 minutes IMAGE SERIES: 1 SEDATION TIME: 45 minutes ACCESS: Right internal jugular vein SEDATION: 1.) 3.5 mg midazolam (Versed) IV 2.) 200 mcg fentanyl (Sublimaze) IV Prophylactic antibiotics were administered with appropriate pre-procedure timing. Vancomycin within 2 hours of procedure, Ancef (or alternative) within 1 hour of procedure. DEVICE: 1. 8 [place] single lumen Bio [place] Port PROCEDURE : 1. Continuous pulse oximetry and EKG monitoring. 2. Intravenous conscious sedation. 3. Ultrasound guidance for venous access. 4. Fluoroscopic guided implantable central venous port placement. The patient was placed supine. The neck was prepped in sterile fashion. Full sterile technique was u sed, including cap, mask, sterile gloves and gown, and a large sterile sheet. Hand hygiene and 2% ch lorhexidine Betadine was utilized per protocol for cutaneous antisepsis with appropriate dry time for site. Sterile gel and sterile probe cover were utilized for ultrasound guidance. The skin and sub cutaneous tissues were infiltrated with local anesthetic solution. Under direct ultrasound guidance, central venous access was accomplished in the targeted vessel. The ultrasound images depicting access guidance were stored and saved to PACS for permanent record. A s ubcutaneous pocket was created using blunt dissection. The port was introduced to the pocket. The c atheter tubing was fed through a subcutaneous tunnel to the venotomy site. The catheter tubing was c ut to a suitable length and then was introduced through a valved Peel-Away sheath and positioned with catheter tubing tip at the cavo-atrial junction level. The pocket incision was closed with subcutic ular Vicryl suture. Steri-Strips were applied. The port was flushed and locked with heparin solutio n per protocol. Sterile dressing was applied to the site. The patient tolerated the procedure well. Conscious sedation was performed with the prescribed dosages and duration as above in the presence of an independent trained radiology nurse to assist in the monitoring of the patient. EKG and oximetry remained stable throughout the procedure. The patient tolerated the procedure well and there were no complications. The patient was sent to post anesthesia recovery in stable condition. CONCLUSION: Uncomplicated ultrasound and fluoroscopic guided implanted central venous port catheter placement as described in detail above. An 8 [place] Power port was placed. Carlos Alberto Coppola MD on August 11, 2017 at 11:53 Board Certified Radiologist. This report was verified electronically.
--- NOTE | 2017-08-11 11:55 | RADRPT ---
EXAM DATE/TIME: 08/11/2017 10:03 [facility] COMPARISON: No previous studies available for comparison. INDICATIONS : Patient presents with pleural effusion in need of therapeutic thoracentesis. MEDICAL HISTORY : GERD Tobacco use Pleural effusion SURGICAL HISTORY : ENCOUNTER: Initial ACUITY: 1 month PAIN SCORE: 0/10 LOCATION: N/A FLUORO TIME: IMAGE SERIES: 1 SEDATION TIME: 45 minutes MEDICATION(S): 1.) 3.5 mg midazolam (Versed) IV 2.) 200 mcg fentanyl (Sublimaze) IV FLUID: Total volume of 600 cc of cloudy, yellow fluid was removed. Fluid was discarded. PROCEDURE : 1. ultrasound guided thoracentesis. The risks, benefits and alternatives to the procedure were explained and verbal and written consent w as obtained. The site was prepped in sterile fashion. Full sterile technique was used, including ca p, mask, sterile gloves and gown and a large sterile sheet. Hand hygiene and 2% chlorhexidine and/or betadine/alcohol prep was utilized per protocol for cutaneous antisepsis. The skin and subcutaneous tissues were infiltrated with local anesthetic solution. Ultrasound evaluation of the right hemithorax demonstrated a moderate amount of fluid. Skin overlying the fluid was then prepped and draped. A 6 Maori thoracentesis catheter was subsequently advanced i nto the right pleural space. Approximately 600 ml of straw-colored fluid was removed. No additional f luid could be removed and the catheter was therefore withdrawn and small dressing applied to the punc ture site. The patient tolerated the procedure well and there were no complications. A chest radiograph is to b e obtained. CONCLUSION: Uncomplicated ultrasound guided thoracentesis. Carlos Alberto Coppola MD on August 11, 2017 at 11:52 Board Certified Radiologist. This report was verified electronically.
--- NOTE | 2017-08-11 11:56 | RADRPT ---
EXAM DATE/TIME: 08/11/2017 11:36 [facility] COMPARISON: CHEST SINGLE AP, July 01, 2017, 13:38. INDICATIONS : Post thorcentesis MEDICAL HISTORY : Hypertension. Breast cancer SURGICAL HISTORY : section. ENCOUNTER: Initial ACUITY: 1 day PAIN SCORE: 0/10 LOCATION: chest FINDINGS: A single view of the chest demonstrates minimal right basilar density. Right-sided port unchanged. T he cardiomediastinal contours are unremarkable. Osseous structures are intact. CONCLUSION: No pneumothorax. Kevin Mathis MD on August 11, 2017 at 11:53 Board Certified Radiologist. This report was verified electronically.
== END 2017-08-11 14:40 | disposition home or self-care (01) ==
LOC: HROP 07:22 → HRIP 07:25 → HROP 14:40
PROVIDERS: ATTEND Internal Medicine Hematology & Oncology
DX: J90 Pleural effusion, not elsewhere classified (principal); C50.911 Malignant neoplasm of unspecified site of right female breast; I10 Essential (primary) hypertension; K21.9 Gastro-esophageal reflux disease without esophagitis
CPT/HCPCS: 32555; 36561; 71045; 76937; 77001; 85025; 85610; 85730; 99152; 99153; C1729; C1788; J1642; J2250; J3010